=== PATIENT | female | born 1970 | race Caucasian/White ===

== ENCOUNTER 2020-05-14 15:09 | Emergency (ER) | payer OTHER ==
[2020-05-14 15:18] VITALS: BP 151/92; PULSE 100; BMI 33.2
[2020-05-14 15:21] VITALS: TEMP 97.9
[2020-05-14] MEDS ORDERED: BACITRACIN 15 GM TUBE TOPICAL OINTMENT ONE (15:48)
== END 2020-05-14 15:52 | disposition home or self-care (01) ==
LOC: JERFT 15:09
DX: S61.052A Open bite of left thumb without damage to nail, initial encounter (principal); W54.0XXA Bitten by dog, initial encounter
CPT/HCPCS: 99282-25

== ENCOUNTER 2020-12-04 07:09 | Day surgery (SDC) | payer OTHER ==
[2020-11-28 12:26] VITALS: BMI 32.2
[2020-12-04] MEDS ORDERED: MIDAZOLAM HCL 2 MG/2 ML SINGLE DOSE VIAL ONE (08:44)
[2020-12-04] MEDS ORDERED: LIDOCAINE HCL 2% (50ML VIAL) NR ONE ×2 (08:56)
[2020-12-04] MEDS ORDERED: PROPOFOL 20 ML ONE (09:01)
[2020-12-04] MEDS ORDERED: GUM MASTIC/STORAX/MSAL/ALCOHOL 1 DRP DROPSBTL MC ONE (09:15)
[2020-12-04 09:46] VITALS: PULSE 84; TEMP 97.9
[2020-12-04 10:33] VITALS: BP 120/72
== END 2020-12-04 10:30 | disposition home or self-care (01) ==
LOC: FASU 07:09
PROVIDERS: ATTEND Orthopaedic Surgery Hand Surgery
PROC: 0LN60ZZ Release Left Lower Arm and Wrist Tendon, Open Approach (ICD-10-PCS; principal; 2020-12-04 09:00)
DX: M65.4 Radial styloid tenosynovitis [de Quervain] (principal)
CPT/HCPCS: 81025